=== PATIENT | female | born 1945 | race Caucasian/White ===

== ENCOUNTER 2022-02-28 12:42 | Outpatient (CLI) | payer MEDICARE, OTHER, SELFPAY ==
--- NOTE | 2022-02-28 13:00 | CRLHL7_ITS ---
For Patients: As a result of the Century Cures Act, medical imaging exams and procedure reports are released immediately into your electronic medical record. You may view this report before your referring provider. If you have questions, please contact your health care provider. INDICATION: Endometrial carcinoma. History of 4.2 x 3.7 x 2.2 cm peripheral right hepatic lobe mass. TECHNIQUE: Multiplanar imaging of the abdomen was performed without and with 15 cc of Dotarem contrast material IV. COMPARISON: None. FINDINGS: The liver is normal in size and shape. In the lateral subcapsular aspect of liver segment 7 is a wedge-shaped 2.5 x 2.3 x 1.0 cm signal abnormality consistent with a post treatment scar. This finding demonstrates mildly decreased signal on T1-weighted images and isointensity on STIR images. This site also demonstrates no diffusion restriction or obvious contrast-enhancement. This is the presumed site of previously described 4.2 x 3.7 x 2.2 cm peripheral right hepatic lobe mass. The liver parenchyma is otherwise unremarkable except for a bilocular 1.5 x 1.1 x 0.7 cm cyst at the junction of segments 5 and 6. Post op changes of cholecystectomy are demonstrated. The bile ducts are normal in caliber. The spleen, adrenal glands, kidneys and pancreas are within normal limits. No lymphadenopathy is apparent. No intrinsic bowel abnormality is evident. No free fluid is demonstrated. The marrow of the visualized thoracic spine and most of the lumbar spine is abnormal with a sharp horizontal demarcation noted in the inferior L4 vertebral body. Below this demarcation L4, L5 and the bony pelvis demonstrates fatty marrow. Fatty marrow in the lower lumbar spine and pelvis is presumably due to radiation therapy. IMPRESSION: 1. Wedge-shaped 2.5 x 2.3 x 1.0 cm signal abnormality in the subcapsular aspect of liver segment 7, likely post treatment scar. Liver otherwise unremarkable except for a bilocular 1.5 cm cyst at the junction of liver segments 5 and 6. 2. Abnormal marrow signal in the thoracic spine and most of the lumbar spine. Post radiation therapy fatty marrow below a sharp demarcation in the inferior L4 vertebral body. 3. Post cholecystectomy. Dictated by Russell Trujillo MD @ 03/02/2022 7:32:01 AM (Electronically Signed)
== END 2022-02-28 12:43 | disposition home or self-care (01) ==
LOC: MRI 12:44
PROVIDERS: PCP Family Medicine; Visit Provider Obstetrics & Gynecology
DX: C54.1 Malignant neoplasm of endometrium (principal); K76.89 Other specified diseases of liver; M89.8X8 Other specified disorders of bone, other site
CPT/HCPCS: 74183; A9575

== ENCOUNTER 2022-05-21 14:30 | Outpatient (RCR) | payer MEDICARE, OTHER, SELFPAY | END 2022-05-23 11:50 | disposition home or self-care (01) | PROVIDERS: PCP Family Medicine; Visit Provider Internal Medicine Hematology & Oncology | DX: M48.061 Spinal stenosis, lumbar region without neurogenic claudication (principal); Z51.89 Encounter for other specified aftercare | CPT/HCPCS: 97110; 97140; 97162 ==

== ENCOUNTER 2023-09-28 13:45 | Outpatient (RCR) | payer MEDICARE, BC, SELFPAY ==
--- NOTE | 2023-07-27 11:05 | PT.OPEX ---
PT [place] Outpatient Eval PT [facility] Outpatient Eval Start: 07/24/23 13:31 Freq: Status: Active Protocol: Document 07/24/23 16:24 MELISSA (Rec: 07/24/23 16:34 MELISSA [id number]) E-signed By Enid Adkins PT Physical Therapy Outpatient Evaluation Insurance Information Recert Due Date 10/21/23 Insurance Name Medicare B,Blue Cross/Blue Shield Medical Diagnosis RIGHT SHOULDER PAIN M25.511 Treating Diagnosis BICEPS TENDINOSIS M67.88 PAINFUL ARC SYNDROME M75.80 Referring MD ZUNIGA Subjective Subjective PATENT IS HERE WITH C/O GLOBALIZED JOINT PAIN THAT SHE REPORTS INCREASED A RESULT OF HER CURRENT CHEMO AND RADIATION TREATMENT. SHE STATES, IT JUST ACHES AND WHEN I RAISE MY ARM IT HURTS. SHE REPORTS JOINT PAIN THROUGHOUT HER BODY THAT LIMITES HER ABILITY TO STAND FOR >3-5 MIN BEFORE SITTING. SHE WOULD LIKE TO IMPROVE HER SYMPTOMS AND HER ABILITY TO USE HER RUE. 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 Preferred Name KULDIP Precautions Treatment Precautions/Contraindications CANCER W/CURRENT CHEMO Therapy Limitations/Systems Review Other Medical Problem Objective Other/Pertinent Objective CERVICAL ROM : WFL NOTING STIFFNESS AND ENDRANGE SORENESS SHOULDER AROM Flexion: R 110 L 168 Abduction: R 88 L 152 Internal Rotation: R SACRUM L T4 External Rotation: R 66 L 72 NECK/SHOULDER MMT: Shoulder shrug: R 4/5 L /5 Shoulder flexion: R 3/5 Shoulder abduction: R 3/5 Shoulder External Rotation: R 4-/5 Shoulder Internal Rotation: R 4+/5 Elbow flexion: R 4-/5 Elbow extension R 4+/5 SPECIAL TEST Spurlings Test: (-) Shoulder impingement (+) HawkinsKennedy Test: (+) Neer Test: (+) Yovani Test(subacromial) : (+) Painful arc 60-120 scaption: ( +) Rotator cuff tendonitis Speeds test(biceps): (+) Zachary test(biceps-arm at side elbow flexed resist supination): *Empty can/Jobes (Supra): (+) *full can: (+) Lift off test (subscap): *horn blower (90-90 resistance t. minor and infra) (+) drop arm test: (+) Labral Tear/Instability /AC joint Scarf test (elbow to chin) : Apprehension: Obriens test -(90 degree flexion and horiz adduction, pain with palm up > palm down = labral tear, otherwise could be AC joint) NT D/T PAINFUL JOINT BY THIS POINT JOINT MOBILITY/PALPATION: PPT PROXIMAL BICEPS, PROXIMAL LATERAL HUMEROUS TX: SHOULDER SHRUGS WITH RETRACTION SHOULDER RETRACTION TABLE SLIDE FLEX SUPINE AAROM CHEST PRESS SUPINE AAROM CHEST PRESS TO OVERHEAD Assessment Assessment/Impression PATIENT IS A [address] ZUNIGA FOR RIGHT SHOULDER PAIN TO EVAL AND TX. PMHX IS SIGNIFICANT FOR ENDOMETRIAL CANCER AND VULVAR CANCER WITH CURRENT CHEMOTHERAPY, CAD W/2 STENTS, CURRENT PORT RIGHT PEC , BILATERAL FEET NEUROPATHY, BILATERAL KNEE OA, LUMBAR SPONDYLOSIS WITH L5-S1 SPONDYLOLISTHESIS, H/O R PARTH ( 2012), DIVERTICULOSIS, HTN. SHE STARTED A NEW MEDICATION IN APRIL WHICH TRIGGERED AN INCREASE IN HER RIGHT SHOULDER PAIN. THROUGH THE ASSESSMENT, SHE HAS RTC WEAKNESS (SUPRA, INFRA, TERES MINOR) WITH CAPSULAR PATTERN AND ARTHROKINEMATIC HYPOMOBILITY NOTED. SHE HAS MANY QUESTIONS TODAY THAT PERTAIN TO EXACTLY MY FINDINGS AND LIMITED TIME TO PROVIDE AN ADEQUATE HEP. WE DISCUSSED BEHAVIOR CHANGES IN REGARD TO THE EXTREME POSITION HER RUE IS PLACED IN WHILE LOWERING AND RAISING OUT OF HER TUB FOR BATHING. SHE IS RESISTANT TO CHANGE THIS B/C OF THE BENEFIT THE BATH PROVIDES IN REGARDS TO RELAXATION. WE STARTED WITH AAROM USING THE TABLE FOR SUPPORT FOR STRETCHING ALONG WITH SCAPULAR SETTING AND FOLLOWED BY SUPINE AAROM CHEST PRESS. SHE IS VERY PARTICULAR ABOUT KNOWING EXACTLY WHAT EA EXERCISES IS USED FOR AND, AGAIN, THIS LIMITED THE TIME FOR THE EXPLANATION OF THE BIG PICTURE REGARDING MY FINDINGS FOR HER SHOULDER. LASTLY, SHE SPIKE OF HER BOTH HIPS (R>L), BOTH KNEES, HER LUMBAR SPINE EQUALLY TROUBLESOME AND LIMITING. A GREAT DEAL OF TIME IS FOCUSSED ON BEGINNING HER THERAPY JOURNEY WITH HER RIGHT SHOULDER SHE HAS MANY OTHER AREAS THAT ARE OF GREATER CONCERN. PATIENT IS APPROPRIATE AND WOULD BENEFIT WITH PHYSICAL THERAPY INTERVENTION TO ADDRESS HER SYMPTOM MGMT, ROM, RTC/SCAP STRENGTHENING. PATIENT VERBALIZED UNDERSTANDING AND IN AGREEMENT WITH POC AND FREQ Primary Functional Limitations ADL'S REACHING LIFTING Plan of Care Rehabilitation Potential Fair Physical Therapy Goals SHOULDER IN 6-10 VISITS: 1. DECREASE SHOULDER PAIN TO < /2-3/10 WITH DAILY ACTIVITIES AND WITH THE PROGRESSION OF HER HEP OVER THE NEXT 4 WEEKS. 2. DEMONSTRATE PAIN FREE AROM OVER THE NEXT 4-6 WEEKS DURING DAILY ACTIVITIES WITHOUT FLARE UPS OF SYMPTOMS. 3. PATIENT WILL VERBALIZED UNDERSTANDING OF POSTURING AND BODY MECHANICS IT RELATES TO DECREASING STRESS, IMPROVED SHOULDER MECHANICS, AND DECREASED SYMPTOMS. 4.PATIENT WILL DEMONSTRATES IMPROVED STRENGTH TO FACILITATE RETURN TO DAILY ACTIVITIES WITH LESS SYMPTOMS AND DECREASED OPPORTUNITIES FOR FLARE UP OF PAIN 5. PATIENT WILL BE INDEPENDENT WITH HER HEP WITHIN THE NEXT 6-8 WEEKS FOR PROGRESSION TWD ABOVE MENTION GOALS, CONTINUED MGMT OF SYMPTOMS, AND ONGOING SELF IMPROVEMENTS IN POSTURING/STRENGTH/ STABILIZATION. Coordination/Communication With Referral Source Treatment Plan/Direct Interventions Ice/Cold/Vasopneumatic,Joint Mobilization,Manual Therapy, Neuromuscular Re-ed, Therapeutic Activities, Therapeutic Exercises Frequency/Duration 1VISIT/WEEK FOR 8 WEEKS-12 WEEKS Patient Will Be Discharged From Therapy Completion of LTG(s), Independently Progressing Evaluation Billing Untimed Code Treatment Minutes 25 PT Eval No Charge No Complexity Moderate Certification Information Initial Certification Date 07/24/23 Ending Certification Date 10/21/23 Provider Signature Shows Agreement With POC & Medical Necessity Physician Signature & Date Requested Please Sign/Date Here Physician Comment/Change : Physician NPI Number #
== END 2023-10-15 16:38 | disposition home or self-care (01) ==
PROVIDERS: PCP Student in an Organized Health Care Education/Training Program; Visit Provider Orthopaedic Surgery
DX: M25.511 Pain in right shoulder (principal); Z51.89 Encounter for other specified aftercare
CPT/HCPCS: 97110; 97140; 97162

== ENCOUNTER 2023-12-21 13:00 | Outpatient (RCR) | payer MEDICARE, BC, SELFPAY | END 2024-01-15 14:49 | disposition home or self-care (01) | PROVIDERS: PCP Student in an Organized Health Care Education/Training Program; Visit Provider Student in an Organized Health Care Education/Training Program | DX: M22.2X1 Patellofemoral disorders, right knee (principal); M47.812 Spondylosis without myelopathy or radiculopathy, cervical region; Z51.89 Encounter for other specified aftercare; M76.30 Iliotibial band syndrome, unspecified leg | CPT/HCPCS: 97110; 97163; 97530 ==

== ENCOUNTER 2024-02-06 17:34 | Inpatient (IN) | payer MEDICARE, BC, SELFPAY ==
[2024-02-06] VITALS (13 sets, daily range): BP systolic 108–152; BP diastolic 41–74; PULSE 73–97; RESP 16–20; TEMP 37–37.7; O2SAT 96–99; BMI 36.8
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
--- NOTE | 2024-02-06 18:32 | CRLHL7_ITS ---
For Patients: As a result of the Century Cures Act, medical imaging exams and procedure reports are released immediately into your electronic medical record. You may view this report before your referring provider. If you have questions, please contact your health care provider. INDICATION: Weakness, cough. TECHNIQUE: Chest 1 views. COMPARISON: None. FINDINGS: Cardiovascular and mediastinum: Heart size is normal. Unremarkable mediastinum. Port overlying the right chest wall with central catheter terminating in the lower SVC. Lungs and pleural spaces: Slightly low lung volumes, but otherwise clear. No sign of infiltrate or mass. No sign of pleural effusion. No pneumothorax. Bones and soft tissues: No significant findings. IMPRESSION: No acute or significant findings. Dictated by Noé Mendosa MD @ 02/06/2024 8:00:09 PM (Electronically Signed)
[2024-02-06 19:05] LABS: Lactate* 1.1 mmol/L (0.5-1.9)
[2024-02-06 19:07] LABS: Basophils Percent Auto 0.9 % (0.0-3.0); Hematocrit 35.7 % (33.0-51.0); Immature Granulocytes Pct Auto 0.5 %; Lymphocytes Percent Auto 19.5 % (20-44); Mean Corpuscular HGB Conc 34 gm/dL (32-36); Mean Corpuscular Hemoglobin 30 pg (26-34); Mean Corpuscular Volume 88 fL (80-100); Monocytes Percent Auto 8.1 % (0.0-11.0); Platelet Count* 122 K/uL (140-440); RDW Coefficient of Variation % 14.1 % (11.5-15.5); Red Blood Count 4.07 m/uL (4.00-5.20); White Blood Count* 4.42 K/uL (4.50-11.00)
[2024-02-06 19:18] LABS: Albumin* 3.6 g/dL (3.3-5.0); Chloride* 97 mmol/L (96-114); Potassium* 3.8 mmol/L (3.6-5.1); Sodium* 126 mmol/L (135-149)
[2024-02-06] MEDS: 0.9 % SODIUM CHLORIDE 1000 ml 1,000 ML 500 ML IV (19:19)
[2024-02-06 19:20] LABS: Bilirubin Total* 0.7 mg/dL (0.1-1.5); Creatinine* 0.8 mg/dL (0.5-1.5); Est. Creatinine Clearance* 56.44; Estimated Glomerular Filt Rate 75 ml/min
[2024-02-06 19:21] LABS: Alanine Aminotransferase* 18 U/L (4-35); Alkaline Phosphatase* 101 U/L (40-150); Anion Gap 5 mEq/L (7-15); Aspartate Amino Transferase* 39 U/L (12-35); Blood Urea Nitrogen* 13 mg/dL (7-30); Calcium* 9.1 mg/dL (8.4-10.6); Carbon Dioxide* 24 mmol/L (20-32); Glucose* 105 mg/dL (60-115); Total Protein* 6.1 g/dL (6.0-8.3)
[2024-02-06 19:22] LABS: Slide Review Reflex No
[2024-02-06 19:24] LABS: C Reactive Protein* 8.7 mg/dL (0.5-1.0)
[2024-02-06 19:38] LABS: NT Pro B Type NatriureticPept* 526 pg/mL; Procalcitonin* 0.22 ng/mL (<0.50); Troponin I* < 0.01 ng/mL (0.01-0.04)
[2024-02-06 19:49] LABS: PCR FLU A Negative PCR FLU A (Negative); PCR FLU B Negative PCR FLU B (Negative); PCR RSV Negative PCR RSV (Negative); SARS PCR* Negative SARS-CoV-2 (Negative)
[2024-02-06] MEDS: 0.9 % SODIUM CHLORIDE 500 ML 500 ML IV (21:16)
[2024-02-06] MEDS: FLUCONAZOLE 100 MG TABLET 200 MG PO (21:46)
[2024-02-06] MEDS: FAMOTIDINE 20 MG TABLET PO (21:47)
[2024-02-06] MEDS: METOPROLOL TARTRATE 25 MG TABLET 12.5 MG PO (21:47)
[2024-02-06] MEDS: ACETAMINOPHEN 325 MG TABLET 650 MG PO (21:53)
[2024-02-06] MEDS: NYSTATIN 500,000 UNIT/5 ML 500000 UNIT SWISH/SWAL (22:24)
[2024-02-06] MEDS: 0.9 % SODIUM CHLORIDE 1000 ml 1,000 ML 125 ML IV (22:24)
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
[2024-02-06] MEDS: GI COCKTAIL (VISC LIDO/ANTACID) 30 ML PO (23:39)
[2024-02-07] VITALS (8 sets, daily range): BP systolic 118–159; BP diastolic 49–78; PULSE 82–99; RESP 16–18; TEMP 37.2–37.9; O2SAT 95–99
[2024-02-07] MEDS: BENZOCAINE/MENTHOL 1 EACH LOZENGE MUCOUS MEM (05:45)
[2024-02-07 05:47] LABS: Appearance Urine Clear (Clear); Bilirubin Urine 1+ (Negative); Blood Urine Negative (Negative); Color Urine Yellow (Yellow); Glucose Urine Negative (Negative); Ketones Urine 3+ (Negative); Leukocyte Esterase Urine 1+ (Negative); Nitrite Urine Negative (Negative); Protein Urine Negative (Negative); Specific Gravity Urine 1.015 (1.000-1.030); Urobilinogen Urine 0.2 (0.2-1.0); pH Urine 5.5 (5.0-8.5)
[2024-02-07 06:02] LABS: Bacteria Urine Moderate; Mucus Urine Few; Squamous Epithelial Cell Urine Few (None-Few)
[2024-02-07] MEDS: 0.9 % SODIUM CHLORIDE 1000 ml 1,000 ML 125 ML IV (06:09)
[2024-02-07 06:21] LABS: HCO3 VBG 23 mmol/L (21-28); Lactate* 0.9 mmol/L (0.5-1.9); PCO2 VBG 43 mmHG (40-50); PO2 VBG 48.2 mmHG (25-47); pH VBG 7.334 (7.32-7.43)
[2024-02-07 06:39] LABS: Hematocrit 32.8 % (33.0-51.0); Hemoglobin* 10.9 gm/dL (12.0-16.0); Mean Corpuscular HGB Conc 33 gm/dL (32-36); Mean Corpuscular Hemoglobin 30 pg (26-34); Mean Corpuscular Volume 89 fL (80-100); Platelet Count* 116 K/uL (140-440); Slide Review Reflex No
[2024-02-07 06:59] LABS: Chloride* 103 mmol/L (96-114); Potassium* 3.9 mmol/L (3.6-5.1); Sodium* 130 mmol/L (135-149)
--- NOTE | 2024-02-07 06:59 | PC.NURSE ---
Arrived to floor around 2100. A&O. SBA w/ cane from home. needs encouragement. VSS. Reporting pain in lower abdomen. See eMAR for interventions. ambulating to bathroom. Using call light appropriately. ?
[2024-02-07 07:02] LABS: Anion Gap 5 mEq/L (7-15); Blood Urea Nitrogen* 10 mg/dL (7-30); Carbon Dioxide* 22 mmol/L (20-32); Creatinine* 0.7 mg/dL (0.5-1.5); Est. Creatinine Clearance* 57.21; Estimated Glomerular Filt Rate 88 ml/min
[2024-02-07 07:03] LABS: Calcium* 8.2 mg/dL (8.4-10.6); Glucose* 85 mg/dL (60-115); Phosphorus* 3.3 mg/dL (2.5-4.5)
[2024-02-07 07:05] LABS: C Reactive Protein* 8.7 mg/dL (0.5-1.0)
[2024-02-07 07:19] LABS: Magnesium* 1.6 mg/dL (1.5-2.6)
--- NOTE | 2024-02-07 07:59 | PM.IMPN1 ---
Progress Note: A&P Assessment and plan (1) Acute hyponatremia: Problem details: - poor solute intake with increased water intake for the past week - 2000 mL fluid restriction - IV normal saline - monitor sodium 02/06: Sodium at 130; continue gentle IVF, fluid restriction Status: Acute (2) Weakness: Problem details: - acute on chronic - PT and OT to assess and assist 02/07/24: UA positive for bacteruria, recommended treatment with antibiotic therapy; but pt declined states she was told she should not be on antibiotics while on chemotherapy; again discussed my recommendation of starting antibiotics but patient wants to wait for urine culture results before deciding on antibiotic therapy. UCx pending . Also patient states she wants to think about her options before deciding on whether she will participate in physical therapy. She does live alone. Status: Acute (3) Oral thrush: Problem details: - single dose of fluconazole 200 mg orally - nystatin swish and swallow - monitor Status: Acute (4) Endometrial cancer: Problem details: - stage iv metastatic to liver with disease progression despite treatments - receiving palliative chemotherapy now with Dr. Clayton, with goal of prolonging life and maintaining quality of life - last CTX 01/25/24 Status: Acute (5) Nausea: Problem details: - proton pump inhibitor - Maalox p.r.n. with lidocaine - antiemetics as needed Status: Acute Plan Anticipated discharge likely Thursday Subjective Date Seen: 02/07/24 Interval history: patient admitted for weakness, hyponatremia discussed UA positive for bacteria; recommended initiation of antibiotics but patient declined Patient also wants to think about whether she will work with PT Patient lives alone Exam Narrative: Exam Narrative: Gen: no acute distress HEENT: NCAT EOMI mmm CV: RRR normal s1 s2 Lungs: CTAB Abd: Soft,nt, nd Neuro: Alert, oriented, CN grossly intact; nonfocal screening?exam Psych: appropriate affect MSK: age appropriate muscle mass Skin; Warm, dry no rash on face Const: Vital Signs, click to edit/add: Vital Signs - 24 hr 02/06/24 17:37 02/06/24 19:24 02/06/24 19:27 Temperature 99.6 F 99.9 F H Pulse Rate 78 Pulse Rate [Pulse Oximeter] Pulse Rate [Right Pulse Oximeter] 88 Pulse Rate [orthos tatic lying Pulse Oximeter] Pulse Rate [orthos tatic sitting Puls e Oximeter] Pulse Rate [orthos tatic standing Pul se Oximeter] Respiratory Rate 20 Blood Pressure 118/41 L Blood Pressure [Ri ght Arm] Blood Pressure [Ri ght Upper Arm] 108/71 Blood Pressure [or thostatic lying] Blood Pressure [or thostatic sitting] Blood Pressure [or thostatic standing ] Pulse Oximetry 97 96 Oxygen Delivery Me thod Room Air 02/06/24 19:28 02/06/24 19:30 02/06/24 19:32 Temperature Pulse Rate 75 76 75 Pulse Rate [Pulse Oximeter] Pulse Rate [Right Pulse Oximeter] Pulse Rate [orthos tatic lying Pulse Oximeter] Pulse Rate [orthos tatic sitting Puls e Oximeter] Pulse Rate [orthos tatic standing Pul se Oximeter] Respiratory Rate 16 Blood Pressure 114/58 L Blood Pressure [Ri ght Arm] Blood Pressure [Ri ght Upper Arm] Blood Pressure [or thostatic lying] Blood Pressure [or thostatic sitting] Blood Pressure [or thostatic standing ] Pulse Oximetry 96 96 97 Oxygen Delivery Me thod 02/06/24 19:33 02/06/24 19:44 02/06/24 19:45 Temperature Pulse Rate 73 82 Pulse Rate [Pulse Oximeter] Pulse Rate [Right Pulse Oximeter] Pulse Rate [orthos tatic lying Pulse Oximeter] Pulse Rate [orthos tatic sitting Puls e Oximeter] Pulse Rate [orthos tatic standing Pul se Oximeter] Respiratory Rate 16 Blood Pressure Blood Pressure [Ri ght Arm] Blood Pressure [Ri ght Upper Arm] Blood Pressure [or thostatic lying] Blood Pressure [or thostatic sitting] Blood Pressure [or thostatic standing ] Pulse Oximetry 96 97 99 Oxygen Delivery Me thod 02/06/24 22:30 02/06/24 22:33 02/06/24 23:00 Temperature 99.5 F 98.6 F Pulse Rate Pulse Rate [Pulse Oximeter] 83 97 Pulse Rate [Right Pulse Oximeter] Pulse Rate [orthos tatic lying Pulse Oximeter] 83 Pulse Rate [orthos tatic sitting Puls e Oximeter] 87 Pulse Rate [orthos tatic standing Pul se Oximeter] 97 Respiratory Rate 16 18 Blood Pressure Blood Pressure [Ri ght Arm] 146/60 H 137/74 Blood Pressure [Ri ght Upper Arm] Blood Pressure [or thostatic lying] 152/62 H Blood Pressure [or thostatic sitting] 149/64 H Blood Pressure [or thostatic standing ] 137/74 Pulse Oximetry 98 98 Oxygen Delivery Me thod Room Air Room Air 02/06/24 23:57 02/07/24 04:31 02/07/24 05:52 Temperature 98.9 F Pulse Rate Pulse Rate [Pulse Oximeter] 82 Pulse Rate [Right Pulse Oximeter] Pulse Rate [orthos tatic lying Pulse Oximeter] 85 Pulse Rate [orthos tatic sitting Puls e Oximeter] 88 Pulse Rate [orthos tatic standing Pul se Oximeter] 99 Respiratory Rate 18 16 Blood Pressure Blood Pressure [Ri ght Arm] 124/50 L Blood Pressure [Ri ght Upper Arm] Blood Pressure [or thostatic lying] 148/64 H Blood Pressure [or thostatic sitting] 159/69 H Blood Pressure [or thostatic standing ] 122/78 Pulse Oximetry 98 95 Oxygen Delivery Me thod Room Air Labs Labs: Laboratory Results - last 24 hr 02/06/24 02/06/24 02/07/24 18:32 18:52 02:00 WBC 4.42 L RBC 4.07 Hgb 12.0 Hct 35.7 MCV 88 MCH 30 MCHC 34 RDW Coeff of Geovanni 14.1 Plt Count 122 L Neut % (Auto) 71.0 Lymph % (Auto) 19.5 L [place] % (Auto) 8.1 Eos % (Auto) 0.0 Baso % (Auto) 0.9 Neut # (Auto) 3.10 Lymph # (Auto) 0.90 [place] # (Auto) 0.40 Eos # (Auto) 0.00 Baso # (Auto) 0.00 Abs Immat Gran (auto) 0.00 Imm/Tot Granulo (auto) 0.5 VBG pH VBG pCO2 VBG pO2 VBG HCO3 Sodium 126 L Potassium 3.8 Chloride 97 Carbon Dioxide 24 Anion Gap 5 L BUN 13 Creatinine 0.8 Estimated Creat Clear 56.44 Estimated GFR 75 Glucose 105 Lactate 1.1 Calcium 9.1 Phosphorus Magnesium Total Bilirubin 0.7 AST 39 H ALT 18 Alkaline Phosphatase 101 Troponin I < 0.01 L C-Reactive Protein 8.7 H NT-Pro-B Natriuret Pep 526 Total Protein 6.1 Albumin 3.6 Procalcitonin 0.22 TSH Urine Color Yellow Urine Appearance Clear Urine pH 5.5 Ur Specific [place] 1.015 Urine Protein Negative Urine Glucose (UA) Negative Urine Ketones 3+ A Urine Blood Negative Urine Nitrite Negative Urine Bilirubin 1+ A Urine Urobilinogen 0.2 Ur Leukocyte Esterase 1+ A Urine RBC 2-5 A Urine WBC 5-10 A Ur Squamous Epith Cells Few Urine Bacteria Moderate A Urine Mucus Few A SARS-CoV-2 (PCR) Negative SARS-CoV-2 Influenza Type A (PCR) Negative PCR FLU A Influenza Type B (PCR) Negative PCR FLU B RSV (PCR) Negative PCR RSV 02/07/24 05:35 WBC 3.20 L RBC 3.70 L Hgb 10.9 L Hct 32.8 L MCV 89 MCH 30 MCHC 33 RDW Coeff of Geovanni Plt Count 116 L Neut % (Auto) Lymph % (Auto) [place] % (Auto) Eos % (Auto) Baso % (Auto) Neut # (Auto) Lymph # (Auto) [place] # (Auto) Eos # (Auto) Baso # (Auto) Abs Immat Gran (auto) Imm/Tot Granulo (auto) VBG pH 7.334 VBG pCO2 43 VBG pO2 48.2 H VBG HCO3 23 Sodium 130 L Potassium 3.9 Chloride 103 Carbon Dioxide 22 Anion Gap 5 L BUN 10 Creatinine 0.7 Estimated Creat Clear 57.21 Estimated GFR 88 Glucose 85 Lactate 0.9 Calcium 8.2 L Phosphorus 3.3 Magnesium 1.6 Total Bilirubin AST ALT Alkaline Phosphatase Troponin I C-Reactive Protein 8.7 H NT-Pro-B Natriuret Pep Total Protein Albumin Procalcitonin TSH 3.260 Urine Color Urine Appearance Urine pH Ur Specific [place] Urine Protein Urine Glucose (UA) Urine Ketones Urine Blood Urine Nitrite Urine Bilirubin Urine Urobilinogen Ur Leukocyte Esterase Urine RBC Urine WBC Ur Squamous Epith Cells Urine Bacteria Urine Mucus SARS-CoV-2 (PCR) Influenza Type A (PCR) Influenza Type B (PCR) RSV (PCR)
[2024-02-07] MEDS: ISOSORBIDE MONONITRATE ER 30 MG TAB PO (09:14)
[2024-02-07] MEDS: METOPROLOL TARTRATE 25 MG TABLET 12.5 MG PO ×2 (09:14→21:15)
[2024-02-07] MEDS: FAMOTIDINE 20 MG TABLET PO (09:14)
[2024-02-07] MEDS: LORATADINE 10 MG TABLET PO (09:14)
[2024-02-07] MEDS: TRIAMCINOLONE ACETONIDE CREAM 0.1 % 1 APPLIC TOPICAL ×2 (09:33→21:19)
[2024-02-07] MEDS: cefTRIAXone 2 GM in 0.9 % SODIUM CHLORIDE Mini-bag 100 ML IVPB (09:33)
[2024-02-07] MEDS: NYSTATIN 500,000 UNIT/5 ML 500000 UNIT SWISH/SWAL ×4 (09:33→21:19)
[2024-02-07] MEDS: NYSTATIN POWDER 1 APPLIC TOPICAL ×2 (09:38→21:19)
[2024-02-07] MEDS: PROCHLORPERAZINE 10 MG TABLET 5 MG PO (12:47)
[2024-02-07] MEDS: 0.9 % SODIUM CHLORIDE 1000 ml 1,000 ML 75 ML IV (14:31)
--- NOTE | 2024-02-07 18:25 | PC.NURSE ---
End of shift: patient alert and oriented x4, patient ambulating sba to br and up to chair for meals. PRN Compazine admin. x1 for nausea. Patient on 1999 fluid restriction and tolerating well. Patient has 75mls/NS running through port on right side of chest.
[2024-02-07] MEDS: ASPIRIN 81 MG TABLET EC PO (21:15)
[2024-02-07] MEDS: ACETAMINOPHEN 325 MG TABLET 650 MG PO (21:17)
[2024-02-08] MEDS: 0.9 % SODIUM CHLORIDE 1000 ml 1,000 ML 75 ML IV (02:13)
[2024-02-08 02:19] VITALS: BP 125/86; PULSE 84; RESP 18; TEMP 37.1; O2SAT 97
[2024-02-08 05:38] LABS: White Blood Count* 4.16 K/uL (4.50-11.00)
[2024-02-08 05:39] LABS: Basophils Percent Auto 0.5 % (0.0-3.0); Eosinophils Percent Auto 0.2 % (0.0-7.0); Hematocrit 34.4 % (33.0-51.0); Hemoglobin* 11.4 gm/dL (12.0-16.0); Immature Granulocytes Pct Auto 0.2 %; Mean Corpuscular HGB Conc 33 gm/dL (32-36); Mean Corpuscular Hemoglobin 30 pg (26-34); Mean Corpuscular Volume 89 fL (80-100); Monocytes Percent Auto 6.3 % (0.0-11.0); Neutrophils Percent Auto 61.8 % (42.0-72.0); Platelet Count* 109 K/uL (140-440); RDW Coefficient of Variation % 14.5 % (11.5-15.5); Red Blood Count 3.87 m/uL (4.00-5.20); Slide Review Reflex No
[2024-02-08 05:54] LABS: Chloride* 106 mmol/L (96-114)
[2024-02-08 05:55] LABS: Potassium* 4.1 mmol/L (3.6-5.1); Sodium* 136 mmol/L (135-149)
[2024-02-08 05:58] LABS: Anion Gap 8 mEq/L (7-15); Blood Urea Nitrogen* 8 mg/dL (7-30); Calcium* 8.6 mg/dL (8.4-10.6); Carbon Dioxide* 22 mmol/L (20-32); Creatinine* 0.7 mg/dL (0.5-1.5); Est. Creatinine Clearance* 57.81; Estimated Glomerular Filt Rate 88 ml/min; Glucose* 103 mg/dL (60-115)
--- NOTE | 2024-02-08 06:37 | PC.NURSE ---
SHIFT NOTE: Pt cooperative, A&O. Denied pain, CP, and N/V, reports mild SOB with exertion. Up SBA & cane, tolerated well, incontinent of urine at times. T-max 100.2, Tylenol given, effective. Oxygen saturations >90% on RA. Pt abdominal folds and left armpit are reddened, Nystatin powder and triamcinolone cream applied per order/pt request. PORT patent, dressing CDI.
[2024-02-08 07:30] VITALS: BP 138/48; PULSE 87; RESP 18; TEMP 37.3; O2SAT 95
[2024-02-08] MEDS: cefTRIAXone 2 GM in 0.9 % SODIUM CHLORIDE Mini-bag 100 ML IVPB (07:45)
[2024-02-08] MEDS: METOPROLOL TARTRATE 25 MG TABLET 12.5 MG PO (08:57)
[2024-02-08] MEDS: SODIUM CHLORIDE 0.9 % (FLUSH) 10 ML SYRINGE 5 ML IVF ×2 (08:57→11:01)
[2024-02-08] MEDS: ISOSORBIDE MONONITRATE ER 30 MG TAB PO (08:57)
[2024-02-08] MEDS: LORATADINE 10 MG TABLET PO (08:57)
[2024-02-08] MEDS: TRIAMCINOLONE ACETONIDE CREAM 0.1 % 1 APPLIC TOPICAL (09:05)
[2024-02-08] MEDS: NYSTATIN POWDER 1 APPLIC TOPICAL (09:06)
[2024-02-08] MEDS: NYSTATIN 500,000 UNIT/5 ML 500000 UNIT SWISH/SWAL (09:06)
--- NOTE | 2024-02-08 10:15 | P.DS_ITS ---
DS: Providers Provider Date Seen: 02/08/24 Date of admission: 02/06/24 21:09 Primary care physician: OMA HALEY DO Admitting Clinician: Lauro Mora MD Consults: 02/06/24 21:09 Consult to Physical Therapy [CONS] Routine Comment: Reason(s) for PT Consult:: Evaluate and Treat Any Restrictions?:: No Restrictions Consult to Director Of Restaurant [CONS] Routine Comment: Reason for Consult:: Discharge Planning Needs 02/06/24 21:12 Consult to Occupational Therapy [CONS] Routine Comment: Reason(s) for OT Consult:: Evaluate and Treat Any Restrictions?:: No Restrictions Attending Physician on discharge: LAVELL Trinh, [facility] Date of Discharge: 02/08/24 DS: Diagnosis Discharge Diagnosis (1) Acute hyponatremia: Status: Acute Problem details: Suspected in poor solute intake with increased water intake for the past week. Initiated on 2000 mL fluid restriction and received IV normal saline with sodium improving to 136 prior to discharge. (2) Weakness: Status: Acute Problem details: Acute on chronic, suspected multifactorial, progressing. Lives at home alone which needs to be re-evaluated. Hyponatremic on admission. Resolved prior to discharge. Patient progressing back to baseline. No leukocytosis, CXR without acute or significant findings, UC negative. PT/OT consulted. Patient initially hesitant however cooperative in working with them. Recommending outpatient therapies, further neurocognitive assessment, NO DRIVING until outpatient assessment with PCP. 02/07/24: UA positive for bacteruria, recommended treatment with antibiotic therapy; but pt declined states she was told she should not be on antibiotics while on chemotherapy; again discussed my recommendation of starting antibiotics but patient wants to wait for urine culture results before deciding on antibiotic therapy. UCx growing mixed Gram-negative Gram-positive duke. IV antibiotics discontinued. Outpatient follow-up with PCP for ongoing management recommendations and needs. (3) Oral thrush: Status: Acute Problem details: Managed with Single dose of fluconazole 200 mg orally and nystatin swish and swallow. Has outpatient follow-up with PCP on day of discharge, will need ongoing monitoring and management. 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 Clayton, with goal of prolonging life and maintaining quality of life - last CTX 01/25/24 (5) Nausea: Status: Resolved Problem details: Resolved prior to discharge. Continued on proton pump inhibitor, Maalox p.r.n. with lidocaine - antiemetics as needed during hospital course. (6) Intertriginous candidiasis: Status: Acute Problem details: Noted in fold of abdomen, axilla. Treated with nystatin and triamcinolone. Continue until resolution with outpatient follow-up with PCP. (7) Syncope: Status: Acute Problem details: Occurring on 01/30/[address] Hospitalized 01/30/24-02/02/24, with negative workup, at [facility]. No DRIVING until further assessment with PCP. DS: Summary Hospital Course Hospital Course: [age] year old female was admitted to the medical floor for generalized weakness, hyponatremia. Course of care and details as noted above. Remainder of chronic medical comorbidities were monitored and managed with home medications. Status at Discharge Overall status at discharge: patient is progressing back to baseline Time Spent with Patient Time attestation: Total time spent providing and/or coordinating discharge services: Time spent: Greater than 30 minutes Exam Narrative: Exam Narrative: PHYSICAL EXAM General: Pleasant, conversant, NAD Cardiovascular: RRR Pulmonary: No dyspnea Neurological: Alert, answering questions appropriately Skin: Warm, dry. Const: Vital Signs, click to edit/add: Vital Signs - 24 hr 02/07/24 11:00 02/07/24 14:52 02/07/24 14:52 Temperature 98.9 F Pulse Rate [Pulse Oximeter] 85 91 Respiratory Rate 16 16 18 Blood Pressure [Le ft Arm] Blood Pressure [Ri ght Arm] 153/73 H Pulse Oximetry 99 96 Oxygen Delivery Me thod Room Air Room Air 02/07/24 14:52 02/07/24 19:00 02/07/24 21:17 Temperature 99.0 F 100.2 F H 100.2 F H Pulse Rate [Pulse Oximeter] 91 94 Respiratory Rate 18 18 Blood Pressure [Le ft Arm] Blood Pressure [Ri ght Arm] 139/68 133/54 L Pulse Oximetry 96 97 Oxygen Delivery Me thod Room Air Room Air 02/07/24 23:00 02/07/24 23:00 02/07/24 23:00 Temperature 99.2 F Pulse Rate [Pulse Oximeter] 82 Respiratory Rate 18 18 18 Blood Pressure [Le ft Arm] 118/49 L Blood Pressure [Ri ght Arm] Pulse Oximetry 96 96 Oxygen Delivery Me thod Room Air Room Air 02/08/24 02:19 Temperature 98.7 F Pulse Rate [Pulse Oximeter] 84 Respiratory Rate 18 Blood Pressure [Le ft Arm] 125/86 Blood Pressure [Ri ght Arm] Pulse Oximetry 97 Oxygen Delivery Me thod Room Air DS: Data Data Completed and Pending Labs on day of discharge: Labs from last 24 hours 02/08/24 05:00 WBC 4.16 L RBC 3.87 L Hgb 11.4 L Hct 34.4 MCV 89 MCH 30 MCHC 33 RDW Coeff of Geovanni 14.5 Plt Count 109 L Neut % (Auto) 61.8 Lymph % (Auto) 31.0 Frontier % (Auto) 6.3 Eos % (Auto) 0.2 Baso % (Auto) 0.5 Neut # (Auto) 2.60 Lymph # (Auto) 1.30 Frontier # (Auto) 0.30 Eos # (Auto) 0.00 Baso # (Auto) 0.00 Abs Immat Gran (auto) 0.00 Imm/Tot Granulo (auto) 0.2 Sodium 136 Potassium 4.1 Chloride 106 Carbon Dioxide 22 Anion Gap 8 BUN 8 Creatinine 0.7 Estimated Creat Clear 57.81 Estimated GFR 88 Glucose 103 Calcium 8.6 Preliminary micro results at discharge 02/07/24 02:00 Urine Culture - Preliminary Urine,Clean Catch Additional Comments Additional comments: CXR without acute or significant findings Discharge Plan Discharge Disposition: Home, Self-Care Date of Admission: 02/06/24 21:09 Attending Provider on Discharge: Babs Grace Primary Care Provider: OMA HALEY Condition: Improved Anticipated Discharge Date/Time: 02/08/24 10:16 Discharge Medications: New nystatin 100,000 unit/mL Suspension 500,000 unit SWISH/SWAL QID Qty: 100 0RF nystatin 100,000 unit/gram Powder 1 applic topical BID Qty: 30 0RF triamcinolone acetonide 0.1 % Cream 1 applic topical BID Qty: 30 0RF Continued isosorbide mononitrate 30 mg tablet extended release 24 hr 30 mg PO DAILY amoxicillin 500 mg capsule 2,000 mg PO ONCE PRN aspirin 81 mg tablet,delayed release (DR/EC) 81 mg PO DAILY glucosamine-chondroitin 500-400 mg capsule 1 cap PO DAILY metoprolol tartrate 25 mg tablet 12.5 mg PO BID rosuvastatin 5 mg tablet 5 mg PO 3XW acetaminophen [Tylenol Extra Strength] 500 mg tablet 500 mg PO BID loperamide [Imodium A-D] 2 mg tablet 2 mg PO Q6H PRN calcium carbonate-vitamin D3 [Calcium 500 + D] 500 mg-10 mcg (400 unit) tablet 1 tab PO BID PreserVision AREDS 4,296 mcg-226 mg-90 mg capsule 1 cap PO BID metronidazole 0.75 % gel 1 applic topical BID ondansetron HCl 8 mg tablet 8 mg PO Q8H PRN prochlorperazine maleate 5 mg tablet 5 mg PO Q6H PRN triamcinolone acetonide 0.1 % cream 1 applic topical TID nitroglycerin 0.4 mg tablet, sublingual 0.4 mg sublingual Q5-15M PRN Rx Instructions: do not exceed 3 doses per episode Centrum Silver Women 8 mg iron-400 mcg-50 mcg tablet 1 tab PO DAILY loratadine 10 mg tablet 10 mg PO DAILY lidocaine-prilocaine 2.5-2.5 % cream 5 g topical DAILY PRN coenzyme Q10 [Co Q-10] 100 mg capsule 100 mg PO DAILY carboxymethylcellulose sodium [Refresh Liquigel] 1 % drops, liquid gel 1 drp ophthalmic (eye) BID PRN fluticasone propionate [24 Hour Allergy Relief] 50 mcg/actuation spray,suspens ion 1 spray intranasal BID PRN Rx Instructions: administer into each nostril Discharge Orders: Discharge Order (Routine); Ordered 02/08/24 Ordered By: Babs Grace Patient Education: Nystatin (By mouth), Nystatin (On the skin), Triamcinolone (On the skin), Hyponatremia (GEN), Oral Candidiasis (GEN), Skin Yeast Infection (GEN) Additional Instructions: Your sodium is 136 today. You have been started on nystatin swish and swallow for lesions in your mouth. Your PCP will continue to manage this for you. Continue nystatin powder and triamcinolone cream in the folds of your skin. Your PCP will continue to manage this for you. Keep your clinic appointment this afternoon. NO DRIVING until evaluated with your PCP. Activity Level: No Restrictions and Activity as Tolerated Discharge Diet: Regular Follow Up Appointments: OMA HALEY DO [Primary Care Provider] - 02/08/24 1:30 pm (She has an appt today at 1330) Forms: Agenda Info Instructions
[2024-02-08 10:27] VITALS: RESP 18; O2SAT 95
[2024-02-08 10:28] VITALS: PULSE 87; RESP 18
[2024-02-08] MEDS: HEPARIN 500 UNIT/5 ML SYRINGE IVF (11:01)
--- NOTE | 2024-02-08 11:12 | PC.SOCIAL ---
Spoke with pt. to discuss discharge plans. Pt. states she feels well supported and has 15 friends call her almost daily. Pt. does not drive currently and relies on her friends to take her places. Pt. is independent with her medications, meals, bathing, ambulation and cleaning. Pt. is aware she can contact drug abuse social worker if she needs additional resources to assist her at home.
[2024-02-08 12:46] VITALS: BP 154/73; PULSE 87; RESP 18; TEMP 37.7; O2SAT 98
--- NOTE | 2024-02-08 13:51 | PC.NURSE ---
Discharge: Patient pleasant and cooperative, A&O. VSS, afebrile. SpO2 maintained above 90% on room air. SBA to bathroom with walker. Port was de-accessed prior to discharge. Tolerating regular diet, 2000cc fluid restriction this shift. Discharge instructions provided, all questions answered. Discharged to home at 1324.
== END 2024-02-08 13:24 | disposition home or self-care (01) | DRG 641 ==
LOC: ED 20:19 → MEDSURG 20:20
PROVIDERS: Hospitalist; Admitting Provider Internal Medicine; Emergency Provider Family Medicine; PCP Student in an Organized Health Care Education/Training Program; Visit Provider Internal Medicine
DX: E87.1 Hypo-osmolality and hyponatremia (principal); B37.0 Candidal stomatitis; C78.7 Secondary malignant neoplasm of liver and intrahepatic bile duct; B37.2 Candidiasis of skin and nail; R82.71 Bacteriuria; R55 Syncope and collapse; R53.1 Weakness; R11.0 Nausea; C54.1 Malignant neoplasm of endometrium; I10 Essential (primary) hypertension; E78.00 Pure hypercholesterolemia, unspecified; E66.9 Obesity, unspecified; K21.9 Gastro-esophageal reflux disease without esophagitis; Z95.828 Presence of other vascular implants and grafts; Z95.5 Presence of coronary angioplasty implant and graft
CPT/HCPCS: 36415; 51798; 71045; 80048; 80053; 81001; 82803; 83605; 83735; 83880; 84100; 84145; 84443; 84484; 85025; 85027; 86140; 87086; 87631; 93005; 94761; 97110; 97116; 97161; 97165; 97535; 99284; 99285; A9270; J0696; J1642; J7030

== ENCOUNTER 2024-02-12 21:08 | Observation (INO) | payer MEDICARE, BC, SELFPAY ==
[2024-02-12 21:12] VITALS: BP 117/72; PULSE 95; RESP 16; TEMP 36.5; O2SAT 97; BMI 36.8
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
[2024-02-12 23:23] LABS: Lactate* 1.1 mmol/L (0.5-1.9)
[2024-02-12 23:25] LABS: Basophils Percent Auto 0.8 % (0.0-3.0); Hematocrit 43.7 % (33.0-51.0); Hemoglobin* 14.7 gm/dL (12.0-16.0); Immature Granulocytes Pct Auto 0.4 %; Lymphocytes Percent Auto 23.9 % (20-44); Mean Corpuscular HGB Conc 34 gm/dL (32-36); Mean Corpuscular Hemoglobin 30 pg (26-34); Mean Corpuscular Volume 88 fL (80-100); Monocytes Percent Auto 18.1 % (0.0-11.0); Neutrophils Percent Auto 56.8 % (42.0-72.0); Platelet Count* 114 K/uL (140-440); RDW Coefficient of Variation % 14.9 % (11.5-15.5); Red Blood Count 4.99 m/uL (4.00-5.20); White Blood Count* 2.38 K/uL (4.50-11.00)
[2024-02-12 23:26] LABS: Slide Review Reflex No
[2024-02-12 23:36] LABS: Chloride* 101 mmol/L (96-114)
[2024-02-12 23:37] LABS: Albumin* 3.4 g/dL (3.3-5.0); Potassium* 3.9 mmol/L (3.6-5.1); Sodium* 131 mmol/L (135-149)
[2024-02-12 23:39] LABS: Creatinine* 0.7 mg/dL (0.5-1.5); Est. Creatinine Clearance* 56.44; Estimated Glomerular Filt Rate 88 ml/min
[2024-02-12 23:40] LABS: Alkaline Phosphatase* 85 U/L (40-150); Anion Gap 6 mEq/L (7-15); Aspartate Amino Transferase* 36 U/L (12-35); Bilirubin Direct* 0.3 mg/dL (0.0-0.5); Bilirubin Total* 0.6 mg/dL (0.1-1.5); Blood Urea Nitrogen* 13 mg/dL (7-30); Carbon Dioxide* 24 mmol/L (20-32); Glucose* 111 mg/dL (60-115); Lipase* 83 U/L (23-300)
[2024-02-12 23:41] LABS: Alanine Aminotransferase* 13 U/L (4-35); Calcium* 8.6 mg/dL (8.4-10.6); Magnesium* 1.8 mg/dL (1.5-2.6)
[2024-02-12 23:54] LABS: C Reactive Protein* 17.2 mg/dL (0.5-1.0)
[2024-02-13] VITALS (8 sets, daily range): BP systolic 107–137; BP diastolic 51–68; PULSE 83–99; RESP 16–18; TEMP 37–37.6; O2SAT 91–97; BMI 25.0
[2024-02-13 00:11] LABS: PCR FLU A Negative PCR FLU A (Negative); PCR FLU B Negative PCR FLU B (Negative); SARS PCR* Negative SARS-CoV-2 (Negative)
[2024-02-13] MEDS: 0.9 % SODIUM CHLORIDE 1000 ml 1,000 ML IV (00:14)
[2024-02-13 01:37] LABS: Appearance Urine Clear (Clear); Bilirubin Urine Negative (Negative); Blood Urine Negative (Negative); Color Urine Amber (Yellow); Glucose Urine Negative (Negative); Ketones Urine 2+ (Negative); Leukocyte Esterase Urine Trace (Negative); Nitrite Urine Negative (Negative); Protein Urine Negative (Negative); Specific Gravity Urine 1.015 (1.000-1.030); Urobilinogen Urine 0.2 (0.2-1.0)
[2024-02-13] MEDS: HYDROCODONE-ACETAMIN 5-325 MG 1 TAB 2 TAB PO (01:40)
[2024-02-13 01:45] LABS: RBC Urine 0-2 (0-2); Squamous Epithelial Cell Urine Few (None-Few); WBC Urine 0-2 (0-5)
--- NOTE | 2024-02-13 02:02 | ED.NURSE ---
Pt adjusted in bed per request and best as possible to be comfortable. Pt brother (Ryan) also informed of admission per patient request.
--- NOTE | 2024-02-13 02:33 | ED.NURSE ---
bed request sent. MS Charge and HS informed.
--- NOTE | 2024-02-13 03:24 | ED.NURSE ---
Rn to Rn given, pt to room 256
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
--- NOTE | 2024-02-13 06:19 | PC.NURSE ---
Arrived to floor at 0330. A&O. SBA w/ cane. VSS. Reports pain in mouth 12/06 but reports ?the pills make it feel better?. Denies n/v, dizziness or lightheadedness. Bed alarm in place.
[2024-02-13] MEDS: NYSTATIN POWDER 1 APPLIC TOPICAL ×2 (09:36→20:39)
[2024-02-13] MEDS: NYSTATIN 500,000 UNIT/5 ML 500000 UNIT SWISH/SWAL ×4 (09:36→20:39)
[2024-02-13] MEDS: ISOSORBIDE MONONITRATE ER 30 MG TAB PO (09:37)
[2024-02-13] MEDS: METOPROLOL TARTRATE 25 MG TABLET 12.5 MG PO ×2 (09:37→20:38)
[2024-02-13] MEDS: ACETAMINOPHEN 500 MG TABLET PO (09:37)
[2024-02-13] MEDS: LORATADINE 10 MG TABLET PO (09:37)
[2024-02-13] MEDS: ASPIRIN 81 MG TABLET EC PO (09:38)
[2024-02-13] MEDS: SODIUM CHLORIDE 0.9 % (FLUSH) 10 ML SYRINGE 5 ML IVF ×2 (09:38→20:39)
[2024-02-13] MEDS: SENNOSIDES/DOCUSATE TABLET 2 TAB PO (11:17)
[2024-02-13] MEDS: DIPHEN/LIDO/ALUM/MAG/SIMETH 5 ML SUSPENSION MUCOUS MEM ×3 (11:17→23:25)
[2024-02-13] MEDS: ACETAMINOPHEN 500 MG TABLET 1000 MG PO ×2 (13:32→20:38)
--- NOTE | 2024-02-13 14:58 | PC.NURSE ---
End of Shift: Patient pleasant and cooperative, A&O. VSS, afebrile. SpO2 maintained above 90% on RA this shift. Patient reports pain on her back and mouth this shift, managed with PRN medication, see OSVALDO. REAA with cane. Tolerating regular diet.
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
[2024-02-13] MEDS: ENOXAPARIN 40 MG/0.4 ML INJ SUBCUT (20:39)
--- NOTE | 2024-02-13 23:19 | PC.NURSE ---
Patient alert and orientedx4. Continues to complain of oral pain sec to wound in mucosa. Also continues to have yeast rash under bilateral armpits and abdominal folds. PRN and scheduled medication given. Patient reported having a BM this shift. Vital signs stable.
[2024-02-14 03:00] VITALS: BP 130/60; PULSE 94; RESP 18; TEMP 37.1; O2SAT 93
[2024-02-14 06:35] LABS: Basophils Percent Auto 1.4 % (0.0-3.0); Eosinophils Percent Auto 4.4 % (0.0-7.0); Hematocrit 31.6 % (33.0-51.0); Hemoglobin* 10.2 gm/dL (12.0-16.0); Immature Granulocytes Pct Auto 0.7 %; Lymphocytes Percent Auto 28.6 % (20-44); Mean Corpuscular HGB Conc 32 gm/dL (32-36); Mean Corpuscular Hemoglobin 30 pg (26-34); Mean Corpuscular Volume 91 fL (80-100); Monocytes Percent Auto 21.8 % (0.0-11.0); Neutrophils Percent Auto 43.1 % (42.0-72.0); Platelet Count* 149 K/uL (140-440); RDW Coefficient of Variation % 15.1 % (11.5-15.5); Red Blood Count 3.46 m/uL (4.00-5.20); White Blood Count* 2.94 K/uL (4.50-11.00)
--- NOTE | 2024-02-14 06:37 | PC.NURSE ---
End of shift note: Pt alert & oriented x 4 and able to make needs known though [place]. VSS and pt has been afebrile. Pt transfers/ambulates with SBA using cane. Pt c/o mouth pain last evening and was given PRN medicated swish. IV to R hand SL. She needs encouragement with po fluids. Call light within reach. Reddened yeasty folds currently being treated with Nystatin Powder BID.
[2024-02-14 06:41] LABS: Slide Review Reflex No
[2024-02-14 06:56] LABS: Chloride* 105 mmol/L (96-114); Sodium* 134 mmol/L (135-149)
[2024-02-14 06:57] LABS: Potassium* 3.7 mmol/L (3.6-5.1)
[2024-02-14 06:59] LABS: Creatinine* 0.7 mg/dL (0.5-1.5); Est. Creatinine Clearance* 48.45; Estimated Glomerular Filt Rate 88 ml/min
[2024-02-14 07:00] LABS: Anion Gap 7 mEq/L (7-15); Blood Urea Nitrogen* 13 mg/dL (7-30); Calcium* 8.1 mg/dL (8.4-10.6); Carbon Dioxide* 22 mmol/L (20-32); Glucose* 87 mg/dL (60-115)
[2024-02-14 07:14] LABS: C Reactive Protein* 15.9 mg/dL (0.5-1.0)
[2024-02-14 08:00] VITALS: BP 136/55; PULSE 85; RESP 18; TEMP 37.4; O2SAT 95
[2024-02-14] MEDS: ASPIRIN 81 MG TABLET EC PO (09:16)
[2024-02-14] MEDS: ACETAMINOPHEN 500 MG TABLET 1000 MG PO (09:16)
[2024-02-14] MEDS: NYSTATIN POWDER 1 APPLIC TOPICAL (09:16)
[2024-02-14] MEDS: ISOSORBIDE MONONITRATE ER 30 MG TAB PO (09:17)
[2024-02-14] MEDS: METOPROLOL TARTRATE 25 MG TABLET 12.5 MG PO (09:17)
[2024-02-14] MEDS: NYSTATIN 500,000 UNIT/5 ML 500000 UNIT SWISH/SWAL (09:17)
[2024-02-14] MEDS: LORATADINE 10 MG TABLET PO (09:17)
[2024-02-14] MEDS: DIPHEN/LIDO/ALUM/MAG/SIMETH 5 ML SUSPENSION MUCOUS MEM (09:17)
[2024-02-14] MEDS: SODIUM CHLORIDE 0.9 % (FLUSH) 10 ML SYRINGE 5 ML IVF (09:18)
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
--- NOTE | 2024-02-14 14:32 | PC.NURSE ---
Discharge: Patient pleasant and cooperative, A&O. VSS, afebrile. Patient reports pain in her mouth rating a 8, managed with PRN medication. IV removed with tip intact. Discharge instructions provided, all questions answered.
== END 2024-02-14 12:30 | disposition home or self-care (01) ==
LOC: ED 02-13 02:24 → MEDSURG 02-13 03:25
PROVIDERS: Family Medicine; Admitting Provider Internal Medicine; Emergency Provider Family Medicine; PCP Student in an Organized Health Care Education/Training Program; Visit Provider Internal Medicine
DX: S22.080A Wedge compression fracture of T11-T12 vertebra, initial encounter for closed fracture (principal); S32.030A Wedge compression fracture of third lumbar vertebra, initial encounter for closed fracture; K12.1 Other forms of stomatitis; K12.31 Oral mucositis (ulcerative) due to antineoplastic therapy; M62.81 Muscle weakness (generalized); L30.4 Erythema intertrigo; R63.0 Anorexia; L27.0 Generalized skin eruption due to drugs and medicaments taken internally; E87.1 Hypo-osmolality and hyponatremia; R68.83 Chills (without fever); R11.0 Nausea; G89.29 Other chronic pain; M54.50 Low back pain, unspecified; C54.1 Malignant neoplasm of endometrium; C78.7 Secondary malignant neoplasm of liver and intrahepatic bile duct; R60.0 Localized edema; K21.9 Gastro-esophageal reflux disease without esophagitis; I25.10 Atherosclerotic heart disease of native coronary artery without angina pectoris; E78.00 Pure hypercholesterolemia, unspecified; I10 Essential (primary) hypertension; F11.90 Opioid use, unspecified, uncomplicated; V89.2XXA Person injured in unspecified motor-vehicle accident, traffic, initial encounter; Z79.82 Long term (current) use of aspirin; Z87.891 Personal history of nicotine dependence; Z95.828 Presence of other vascular implants and grafts; Z95.5 Presence of coronary angioplasty implant and graft; Z96.641 Presence of right artificial hip joint; Z90.710 Acquired absence of both cervix and uterus; Z90.49 Acquired absence of other specified parts of digestive tract; Z98.890 Other specified postprocedural states
CPT/HCPCS: 36415; 80048; 80076; 81001; 81003; 83605; 83690; 83735; 85025; 86140; 87086; 87631; 96360; 96372; 97116; 97161; 97165; 99284; 99285; A9270; G0378; J1650; J7030

== ENCOUNTER 2024-03-15 13:18 | Outpatient (CLI) | payer MEDICARE, BC, SELFPAY | END 2024-03-15 13:19 | disposition home or self-care (01) | LOC: AMB 03-16 03:11 | PROVIDERS: PCP Student in an Organized Health Care Education/Training Program; Visit Provider Family Medicine | DX: R55 Syncope and collapse (principal); R53.1 Weakness | CPT/HCPCS: A0425; A0427 ==

== ENCOUNTER 2024-03-15 13:51 | Observation (INO) | payer MEDICARE, BC, SELFPAY ==
[2024-03-15] VITALS (8 sets, daily range): BP systolic 102–137; BP diastolic 47–77; PULSE 86–100; RESP 16; TEMP 35.9–36.6; O2SAT 97–100; BMI 29.7; BMI 30.1
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
[2024-03-15 15:43] LABS: Lactate* 0.6 mmol/L (0.5-1.9)
[2024-03-15 15:46] LABS: Basophils Absolute Auto 0.07 K/uL (0.00-0.30); Basophils Percent Auto 1.2 % (0.0-3.0); Eosinophils Absolute Auto 0.01 K/uL (0.00-0.50); Eosinophils Percent Auto 0.2 % (0.0-7.0); Hematocrit 31.7 % (33.0-51.0); Immature Granulocytes Abs Auto 0.02 K/uL (0.00-0.30); Immature Granulocytes Pct Auto 0.3 %; Lymphocytes Absolute Auto 1.23 K/uL (0.90-2.90); Lymphocytes Percent Auto 20.3 % (20-44); Mean Corpuscular HGB Conc 32 gm/dL (32-36); Mean Corpuscular Hemoglobin 29 pg (26-34); Mean Corpuscular Volume 93 fL (80-100); Monocytes Percent Auto 13.7 % (0.0-11.0); Neutrophils Absolute Auto 3.89 K/uL (1.7-7.0); Neutrophils Percent Auto 64.3 % (42.0-72.0); Platelet Count* 196 K/uL (140-440); RDW Coefficient of Variation % 15.5 % (11.5-15.5); Red Blood Count 3.41 m/uL (4.00-5.20); White Blood Count* 6.05 K/uL (4.50-11.00)
[2024-03-15 15:48] LABS: Slide Review Reflex No
[2024-03-15] MEDS: 0.9 % SODIUM CHLORIDE 500 ML 500 ML IV ×2 (15:48→17:20)
[2024-03-15 16:02] LABS: Troponin, Point-of-Care* 0.01 ng/ml (0.01-0.04)
[2024-03-15 16:14] LABS: Albumin* 3.1 g/dL (3.3-5.0); Chloride* 102 mmol/L (96-114); Sodium* 131 mmol/L (135-149)
[2024-03-15 16:15] LABS: Potassium* 4.4 mmol/L (3.6-5.1)
[2024-03-15 16:17] LABS: Creatinine* 1.5 mg/dL (0.5-1.5); Est. Creatinine Clearance* 23.32; Estimated Glomerular Filt Rate 35 ml/min
[2024-03-15 16:18] LABS: Alanine Aminotransferase* 9 U/L (4-35); Alkaline Phosphatase* 88 U/L (40-150); Anion Gap 7 mEq/L (7-15); Aspartate Amino Transferase* 38 U/L (12-35); Bilirubin Direct* 0.2 mg/dL (0.0-0.5); Bilirubin Total* 0.3 mg/dL (0.1-1.5); Blood Urea Nitrogen* 22 mg/dL (7-30); Calcium* 9.4 mg/dL (8.4-10.6); Carbon Dioxide* 22 mmol/L (20-32); Glucose* 103 mg/dL (60-115); Magnesium* 1.5 mg/dL (1.5-2.6); Total Protein* 5.6 g/dL (6.0-8.3)
[2024-03-15 16:20] LABS: C Reactive Protein* 2.3 mg/dL (0.5-1.0)
[2024-03-15 16:30] LABS: Troponin I* < 0.01 ng/mL (0.01-0.04)
[2024-03-15] MEDS: 0.9 % SODIUM CHLORIDE 1000 ml 1,000 ML 75 ML IV (18:56)
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
[2024-03-16] VITALS (10 sets, daily range): BP systolic 106–138; BP diastolic 46–80; PULSE 75–111; RESP 16–18; TEMP 36.8–37.4; O2SAT 93–99; BMI 30.3
[2024-03-16] MEDS: ACETAMINOPHEN 325 MG TABLET 650 MG PO (04:50)
[2024-03-16 05:07] LABS: Appearance Urine Cloudy (Clear); Bilirubin Urine Negative (Negative); Blood Urine Negative (Negative); Color Urine Yellow (Yellow); Glucose Urine Negative (Negative); Ketones Urine 1+ (Negative); Leukocyte Esterase Urine 1+ (Negative); Nitrite Urine Negative (Negative); Protein Urine Negative (Negative); Specific Gravity Urine 1.015 (1.000-1.030); Urobilinogen Urine 0.2 (0.2-1.0); pH Urine 5.5 (5.0-8.5)
[2024-03-16 05:15] LABS: Bacteria Urine Few; RBC Urine 0-2 (0-2); Squamous Epithelial Cell Urine Few (None-Few); WBC Urine 0-2 (0-5)
--- NOTE | 2024-03-16 06:32 | PC.NURSE ---
[id number] Pt slept well between cares. when asked about pain, mentions lower back pain which increased with activity. attempted to ambulate to BR but was unsuccessful due to increased pain in back, BSC used and pt able to pivot with GB, cane and 1A.
[2024-03-16 07:28] LABS: Basophils Absolute Auto 0.03 K/uL (0.00-0.30); Basophils Percent Auto 0.6 % (0.0-3.0); Eosinophils Percent Auto 11.2 % (0.0-7.0); Hematocrit 36.7 % (33.0-51.0); Hemoglobin* 11.4 gm/dL (12.0-16.0); Immature Granulocytes Abs Auto 0.01 K/uL (0.00-0.30); Immature Granulocytes Pct Auto 0.2 %; Lymphocytes Absolute Auto 1.51 K/uL (0.90-2.90); Lymphocytes Percent Auto 30.9 % (20-44); Mean Corpuscular HGB Conc 31 gm/dL (32-36); Mean Corpuscular Hemoglobin 30 pg (26-34); Mean Corpuscular Volume 96 fL (80-100); Monocytes Percent Auto 14.5 % (0.0-11.0); Neutrophils Absolute Auto 2.08 K/uL (1.7-7.0); Neutrophils Percent Auto 42.6 % (42.0-72.0); Platelet Count* 195 K/uL (140-440); RDW Coefficient of Variation % 15.8 % (11.5-15.5); Red Blood Count 3.83 m/uL (4.00-5.20); White Blood Count* 4.89 K/uL (4.50-11.00)
[2024-03-16 07:33] LABS: Slide Review Reflex No
[2024-03-16 07:45] LABS: Albumin* 3.6 g/dL (3.3-5.0); Chloride* 106 mmol/L (96-114); Potassium* 4.7 mmol/L (3.6-5.1); Sodium* 134 mmol/L (135-149)
[2024-03-16 07:47] LABS: Bilirubin Total* 0.4 mg/dL (0.1-1.5); Creatinine* 1.2 mg/dL (0.5-1.5); Est. Creatinine Clearance* 29.16; Estimated Glomerular Filt Rate 46 ml/min
[2024-03-16 07:48] LABS: Alanine Aminotransferase* 10 U/L (4-35); Alkaline Phosphatase* 92 U/L (40-150); Anion Gap 9 mEq/L (7-15); Aspartate Amino Transferase* 45 U/L (12-35); Blood Urea Nitrogen* 18 mg/dL (7-30); Calcium* 9.2 mg/dL (8.4-10.6); Carbon Dioxide* 19 mmol/L (20-32); Glucose* 76 mg/dL (60-115); Total Protein* 6.2 g/dL (6.0-8.3)
[2024-03-16] MEDS: ASPIRIN 81 MG TABLET EC PO (09:30)
[2024-03-16] MEDS: LORATADINE 10 MG TABLET PO (09:30)
[2024-03-16] MEDS: ISOSORBIDE MONONITRATE ER 30 MG TAB PO (09:31)
[2024-03-16] MEDS: ACETAMINOPHEN 500 MG TABLET 1000 MG PO (09:43)
[2024-03-16] MEDS: CARBOXYMETHYLCELLULOSE (REFRESH PLUS) TEARS 1 DROP EYE-BOTH (11:51)
[2024-03-16] MEDS: LIDOCAINE 5% PATCH 1 PATCH TRANSDERMA (11:51)
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
--- NOTE | 2024-03-16 12:45 | PC.SOCIAL ---
Social work: Received call from RN at [facility] [phone], who confirmed pt had been discharged home yesterday from a Medicare covered rehab stay. Samuel stated pt had been independent with all care (except was still being provided assistance in the shower as this is a requirement of facility) prior to discharge and refused home care PT/OT be arranged. Samuel stated that if pt has a new PT/OT need, she would qualify for a group home stay based on her previous qualifying Medicare hospital stay. Samuel shared that family had expressed concerns about pt's home situation not being ideal and that pt is a hoarder in her home. Pt lives along and has family members who live nearby. 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
--- NOTE | 2024-03-16 14:23 | PC.SOCIAL ---
Discharge planning: Met with pt regarding d/c plan. Pt states she lives by herself in her own home and hopes to return home at discharge. Pt confirms that she just discharged home from [facility] and was independent with her cares at that facility. Pt states she can go home from the hospital if the hospital can figure out why she is fainting and that she does not think she needs a long-term any more. 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
[2024-03-16 15:02] LABS: C.Difficile Negative (Negative); CDIFFEPI 027 PRESUMPTIVE NEGATIVE (Negative)
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
--- NOTE | 2024-03-16 19:09 | PC.NURSE ---
End of Shift: The patient is alert and orientated, although noted to be confused and not recall information throughout the day. VSS on RA. No reports of dizziness when ambulating. Up Ax1 w/ GB and cane to BR and chair. The patient reported moderate back pain this shift, declined Tylenol throughout the day. Lidocaine patch to mid back. Poor PO overall PO intake as well as a poor appetite. Ensure provided throughout the day. Call light within reach. The patient does not always remember to call. Alarm is in place. Candi PEREZ BSN
[2024-03-16] MEDS: METOPROLOL TARTRATE 25 MG TABLET 12.5 MG PO (21:19)
[2024-03-16] MEDS: ROSUVASTATIN CALCIUM 10 MG TABLET 5 MG PO (21:20)
[2024-03-16] MEDS: MELATONIN 3 MG TABLET PO (21:21)
[2024-03-16] MEDS: NYSTATIN POWDER 1 APPLIC TOPICAL (21:52)
[2024-03-17 04:38] VITALS: BP 115/52; PULSE 92; RESP 16; TEMP 36.8; O2SAT 95
[2024-03-17 07:25] VITALS: PULSE 90
[2024-03-17] MEDS: ACETAMINOPHEN 325 MG TABLET 650 MG PO ×2 (07:31→13:23)
--- NOTE | 2024-03-17 07:41 | PC.NURSE ---
Pt alert and oriented x3. Afebrile. On room air. Pt reports 6/10 pain in back, pain managed with scheduled medications. Pt is up SBA with cane, voiding, and tolerating a regular diet. Pt slept throughout most of night.
[2024-03-17 07:50] VITALS: BP 114/50; BP 116/52; BP 119/42; PULSE 103; PULSE 89; PULSE 95; RESP 18; TEMP 36.9; O2SAT 95
[2024-03-17] MEDS: METOPROLOL TARTRATE 25 MG TABLET 12.5 MG PO (09:18)
[2024-03-17] MEDS: ASPIRIN 81 MG TABLET EC PO (09:18)
[2024-03-17] MEDS: LORATADINE 10 MG TABLET PO (09:18)
[2024-03-17] MEDS: ISOSORBIDE MONONITRATE ER 30 MG TAB PO (09:18)
[2024-03-17 09:26] LABS: Basophils Percent Auto 0.7 % (0.0-3.0); Eosinophils Percent Auto 11.4 % (0.0-7.0); Hematocrit 33.7 % (33.0-51.0); Hemoglobin* 10.3 gm/dL (12.0-16.0); Immature Granulocytes Pct Auto 0.5 %; Lymphocytes Percent Auto 25.9 % (20-44); Mean Corpuscular HGB Conc 31 gm/dL (32-36); Mean Corpuscular Hemoglobin 29 pg (26-34); Mean Corpuscular Volume 96 fL (80-100); Monocytes Percent Auto 14.8 % (0.0-11.0); Neutrophils Percent Auto 46.7 % (42.0-72.0); Platelet Count* 180 K/uL (140-440); RDW Coefficient of Variation % 15.3 % (11.5-15.5); Red Blood Count 3.52 m/uL (4.00-5.20); White Blood Count* 4.13 K/uL (4.50-11.00)
[2024-03-17 09:27] LABS: Slide Review Reflex No
[2024-03-17 09:35] LABS: Chloride* 105 mmol/L (96-114); Potassium* 4.5 mmol/L (3.6-5.1); Sodium* 135 mmol/L (135-149)
[2024-03-17 09:38] LABS: Anion Gap 7 mEq/L (7-15); Blood Urea Nitrogen* 17 mg/dL (7-30); Carbon Dioxide* 23 mmol/L (20-32); Creatinine* 0.9 mg/dL (0.5-1.5); Est. Creatinine Clearance* 34.99; Estimated Glomerular Filt Rate 65 ml/min; Glucose* 93 mg/dL (60-115)
[2024-03-17 09:39] LABS: Calcium* 9.3 mg/dL (8.4-10.6)
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
[2024-03-17 11:33] VITALS: BP 102/45; PULSE 83; RESP 18; TEMP 36.8; O2SAT 100
[2024-03-17] MEDS: LIDOCAINE 5% PATCH 1 PATCH TRANSDERMA (11:38)
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
--- NOTE | 2024-03-17 15:54 | PC.NURSE ---
Pt is pleasant, alert, oriented and vitally stable. Orthostatic blood pressures done, see chart for results. Moves via stand by with cane. Discharge education given on follow up, medications, and plan of care. No IV present, MD aware. Discharged home by self at 1348.
== END 2024-03-17 13:48 | disposition home or self-care (01) ==
LOC: ED 17:25 → MEDSURG 17:48
PROVIDERS: Physician Assistant; Admitting Provider Family Medicine; Emergency Provider Family Medicine; PCP Student in an Organized Health Care Education/Training Program; Visit Provider Family Medicine
DX: R55 Syncope and collapse (principal); R53.1 Weakness; C54.1 Malignant neoplasm of endometrium; E87.1 Hypo-osmolality and hyponatremia; E86.0 Dehydration; R19.7 Diarrhea, unspecified; N18.30 Chronic kidney disease, stage 3 unspecified; M54.9 Dorsalgia, unspecified; I25.10 Atherosclerotic heart disease of native coronary artery without angina pectoris; Z87.891 Personal history of nicotine dependence; H53.8 Other visual disturbances; E46 Unspecified protein-calorie malnutrition; R62.7 Adult failure to thrive
CPT/HCPCS: 36415; 80048; 80053; 80076; 81001; 83605; 83735; 84484; 85025; 86140; 87086; 87493; 93005; 94761; 96360; 97112; 97116; 97162; 97165; 97530; 99284; 99285; G0378; A9270; J7030